=== PATIENT | male | born 1980 | race Two or more races ===

== ENCOUNTER 2019-12-08 17:18 | Emergency (ER) | payer OTHER ==
[~2019-12-08] VITALS: Ht 185.4 cm; Wt 145.1 kg
[2019-12-08] MEDS ORDERED: cloNIDine HCL 0.1 MG TAB ONE (17:40)
[2019-12-08] MEDS ORDERED: cloNIDine HCL 0.1 MG TAB PO ONE (17:45)
[2019-12-08 18:01] LABS: Basophils # (auto) 0.1 10 ^3/uL (0-0.2); Eosinophils # (auto) 0.2 10 ^3/uL (0-0.8); Eosinophils % (auto) 2.2 % (0.0-7.0); Hematocrit 50.8 % (41.0-53.0); Hemoglobin 16.9 g/dL (13.5-17.5); Lymphocytes # (auto) 2.2 10 ^3/uL (0.4-5.4); Mean Corpuscular Hemoglobin 30.3 pg (28.0-32.0); Mean Corpuscular Hgb Conc. 33.3 g/dL (32.0-36.0); Mean Corpuscular Volume 90.8 fL (80.0-100.0); Monocytes % (auto) 10.6 % (0.0-12.0); Neutrophils # (auto) 5.8 10 ^3/uL (1.6-8.6); Neutrophils % (auto) 62.2 % (37.0-80.0); Nucleated Red Blood Cells % 0.1 %; Platelet Count (auto) 191 10^3/uL (140-450); Red Blood Cells 5.59 10^6/uL (4.5-5.90); White Blood Cell 9.3 10^3/uL (4.4-10.8)
[2019-12-08 18:20] LABS: Alanine Aminotransferase 175 U/L (16-61); Albumin 4.4 g/dL (3.4-5.0); Anion Gap 7 (5-15); Aspartate Aminotransferase 106 U/L (15-37); BUN/Creatinine Ratio 5.5; Blood Urea Nitrogen 5 mg/dL (7-18); Calcium 9.6 mg/dL (8.5-10.1); Carbon Dioxide 27 mmol/L (21-32); Chloride 104 mmol/L (98-107); GFR African American 119 mL/min; GFR Non-African American 99 mL/min; Glucose 97 mg/dL (74-106); Potassium 4.1 mmol/L (3.5-5.1); Sodium 138 mmol/L (136-145)
[2019-12-08 18:22] LABS: Alkaline Phosphatase 55 U/L (45-117); Bilirubin, Total 0.7 mg/dL (0.2-1.0); Total Protein 9.1 g/dL (6.4-8.2)
[2019-12-08] MEDS ORDERED: AMOXICILLIN/CLAVUL 875 MG TAB PO ONE (18:45)
[2019-12-08 22:05] VITALS: BP 152/97
[2019-12-08] MEDS ORDERED: cefTRIAXone SOD 1,000 MG VL IM ONE (22:45)
[2019-12-08] MEDS ORDERED: LIDOCAINE 1% HCL (LOCAL ANESTH.) INJ 20ML MDV IJ ONE (22:45)
== END 2019-12-08 23:27 | disposition home or self-care (01) ==
LOC: ER 17:18
DX: J01.00 Acute maxillary sinusitis, unspecified (principal); F41.9 Anxiety disorder, unspecified; I10 Essential (primary) hypertension
CPT/HCPCS: 36415; 70450; 71046; 80053; 83880; 84443; 84484; 85025; 93005; 96372; 99285; J0696; J2001

== ENCOUNTER 2020-02-23 10:38 | Emergency (ER) | payer OTHER ==
[~2020-02-23] VITALS: Ht 185.4 cm; Wt 149.7 kg
[2020-02-23] MEDS ORDERED: SODIUM CHLORIDE 0.9% 1,000 ML IV ONE (11:15)
[2020-02-23] MEDS ORDERED: LORazepam 2MG/ML-1ML VIAL IV ONE (11:15)
[2020-02-23 11:26] LABS: Basophils # (auto) 0.1 10 ^3/uL (0-0.2); Basophils % (auto) 1.1 % (0.0-2.0); Eosinophils # (auto) 0.2 10 ^3/uL (0-0.8); Eosinophils % (auto) 3.9 % (0.0-7.0); Hematocrit 49.5 % (41.0-53.0); Hemoglobin 16.5 g/dL (13.5-17.5); Mean Corpuscular Hgb Conc. 33.3 g/dL (32.0-36.0); Mean Corpuscular Volume 89.9 fL (80.0-100.0); Monocytes # (auto) 0.5 10 ^3/uL (0-1.3); Monocytes % (auto) 8.3 % (0.0-12.0); Neutrophils # (auto) 3.3 10 ^3/uL (1.6-8.6); Neutrophils % (auto) 53.7 % (37.0-80.0); Platelet Count (auto) 227 10^3/uL (140-450); Red Blood Cells 5.51 10^6/uL (4.5-5.90); Red Cell Distribution Width 13.6 % (11.8-14.3); White Blood Cell 6.1 10^3/uL (4.4-10.8)
[2020-02-23 11:40] LABS: Albumin 4.6 g/dL (3.4-5.0); Calcium 9.2 mg/dL (8.5-10.1); Potassium 4.1 mmol/L (3.5-5.1)
[2020-02-23 11:44] LABS: BUN/Creatinine Ratio 9.9; Bilirubin, Total 0.6 mg/dL (0.2-1.0); Total Protein 8.5 g/dL (6.4-8.2)
[2020-02-23 12:12] LABS: Urine Bacteria FEW /hpf (None Seen); Urine Blood Negative /uL (Negative); Urine Specific Gravity 1.003 (1.001-1.035); Urine WBC <1 /hpf (0 - 3)
[2020-02-23 12:36] LABS: Amphetamine Screen, Urine NEGATIVE (NEGATIVE); Barbiturate Scree,Urine NEGATIVE (NEGATIVE); Benzodiazephine Screen, Urine NEGATIVE (NEGATIVE); Cannabinoid Screen, Urine NEGATIVE (NEGATIVE); Cocaine Screen, Urine NEGATIVE (NEGATIVE); Opiate Scree,Urine NEGATIVE (NEGATIVE); Phencyclidine Screen, Urine NEGATIVE (NEGATIVE)
[2020-02-23 16:00] VITALS: BP 166/117
== END 2020-02-23 16:39 | disposition home or self-care (01) ==
LOC: ER 10:38
DX: F10.20 Alcohol dependence, uncomplicated (principal); I10 Essential (primary) hypertension
CPT/HCPCS: 36415; 80053; 80307; 80320; 81001; 83735; 85025; 93005; 96361; 96374; 99285; J2060; J7030